=== PATIENT | female | born 1995 | race Caucasian/White ===

== ENCOUNTER 2017-06-22 15:17 | Emergency (ER) | payer BC, OTHER ==
[~2017-06-22] VITALS: Ht 162.6 cm; Wt 110.0 kg
[~2017-06-22 15:17] MED LIST: BCPILLS PO
[2017-06-22] MEDS ORDERED: SODIUM CHLORIDE 0.9% 1000ML 1,000 ML IV STA (15:25)
[2017-06-22 15:30] VITALS: TEMP 37; Ht 162.6 cm; Wt 110.0 kg
[2017-06-22 15:49] LABS: BASO % 0.3 %; BASO ABS # 0.03 K/uL (0-0.2); COMPLETE YES; EOS % 0.8 %; HEMATOCRIT 44.9 % (37-47); IG% 0.3 %; LYMPH % 18.3 %; LYMPH ABS # 2.09 K/uL (1.2-3.4); MEAN CELL VOLUME 90.7 fL (80-100); MEAN CORPUSCULAR HEMOGLOBIN 30.9 pg (25-34); MEAN CORPUSCULAR HGB CONC 34.1 g/dl (32-36); MEAN PLATELET VOLUME 9.7 fL (7.4-10.4); MONO % 6.6 %; NEUT % 73.7 %; PLATELET COUNT 306 K/uL (130-400); RED BLOOD COUNT 4.95 M/uL (4.2-5.4); WHITE BLOOD COUNT 11.43 K/uL (4.8-10.8)
[2017-06-22 16:02] LABS: URINE APPEARANCE CLEAR (CLEAR); URINE BILIRUBIN NEG (NEG); URINE COLOR DK YELLOW; URINE NITRITE NEG (NEG); URINE SPECIFIC GRAVITY 1.031 (1.000-1.030); UROBILINOGEN NEG (NEG)
[2017-06-22 16:06] LABS: BUN/CREATININE RATIO 17.1 (10-20); CALCIUM 9.5 mg/dl (8.5-10.1); CREATININE 0.88 mg/dl (0.60-1.20); POTASSIUM 3.8 mmol/L (3.5-5.1)
[2017-06-22] MEDS ORDERED: IBUP-1050 PO (16:09)
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
[2017-06-22 16:16] LABS: MANUAL MICROSCOPIC REQUIRED? NO; REVIEW REQ? NO
--- NOTE | 2017-06-22 16:18 | DIAGNOSTIC IMAGING REPORT ---
CHEST ONE VIEW PORTABLE CLINICAL HISTORY: Trauma. COMPARISON STUDY: No previous studies for comparison. FINDINGS: Study is compromised by suboptimal penetration. No pneumothorax or pleural effusion is present. Lungs are clear. Cardiac size is at the upper limits of normal. Pulmonary vascularity is normal. There is suspected mild rightward curvature of the upper to mid thoracic spine. IMPRESSION: No acute cardiopulmonary findings. Electronically signed by: Darren Eagle M.D. 06/22/2017 4:16 PM Dictated Date/Time: 06/22/2017 4:15 PM
[2017-06-22] MEDS ORDERED: OPTIRAY 320 IV PRN (17:00)
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
[2017-06-22 17:46] VITALS: BP 114/68; PULSE 88; O2SAT 100
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
== END 2017-06-22 17:48 | disposition home or self-care (01) ==
LOC: EDBD 15:17 → C.EDC 15:19
DX: S60.212A Contusion of left wrist, initial encounter (principal); S30.1XXA Contusion of abdominal wall, initial encounter; V43.52XA Car driver injured in collision with other type car in traffic accident, initial encounter